=== PATIENT | male | born 1985 | race American Indian/Alaskan Native ===

== ENCOUNTER 2021-05-30 08:02 | Emergency (ER) | payer SELFPAY ==
[2021-05-30] MEDS ORDERED: SODIUM CHLORIDE 0.9% 1000 ML 1,000 ML IV ONE (08:21)
[2021-05-30] MEDS ORDERED: PANTOPRAZOLE 40 MG INJ IV ONE (08:22)
[2021-05-30] MEDS ORDERED: BACLOFEN 10 MG TAB PO ONE (08:23)
--- NOTE | 2021-05-30 08:28 | Emergency Department Report ---
HPI - General Chief Complaint: Abdominal Pain Time Seen by Provider: 05/30/21 08:11 - HPI HPI: 36-year-old -[place] male presents to the emergency department with a 3- day history of intractable hiccups and epigastric abdominal pain. The hiccups s tarted 1st, followed by the abdominal pain. He says that this is 5 out of 10 in intensity and is a soreness. It worsens with the hiccups, but no known alleviating factors. He has tried multiple physical maneuvers and/or home remedies for the hiccups without any relief. This is never happened to him previously. He denies any past medical history. No recent travel or sick contacts at home. He denies any fever, back pain, dysuria, chest pain, shortness of breath, nausea, vomiting, diarrhea, constipation. ED Past Medical Hx - Social History Smoking Status: Never Smoker Substance Use Type: Alcohol - Medications Home Medications: Home Medications Medication Instructions Recorded Confirmed Last Taken Type chlorproMAZINE [Thorazine] 25 mg PO Q8H PRN #9 tablet 05/30/21 Unknown Rx ED Review of Systems ROS: Stated complaint: HICCUPS Other details as noted in HPI Comment: All other systems reviewed and negative Constitutional: denies: chills, fever Eyes: denies: eye pain, vision change ENT: denies: ear pain, throat pain Respiratory: denies: cough, shortness of breath Cardiovascular: denies: chest pain, palpitations Gastrointestinal: abdominal pain. denies: vomiting Genitourinary: denies: dysuria, discharge Musculoskeletal: denies: back pain, arthralgia Skin: denies: rash, lesions Neurological: denies: headache, weakness Physical Exam - Physical Exam Vital Signs: Vital Signs 05/30/21 08:06 Temperature 99.3 F Pulse Rate 88 Respiratory 15 Rate Blood Pressure 130/93 [Right] O2 Sat by Pulse 95 Oximetry Physical Exam: GENERAL: The patient is well-developed well-nourished. Persistent hiccups seen. HENT: Normocephalic. Atraumatic. Patient has moist mucous membranes. EYES: Extraocular motions are intact. NECK: Supple. Trachea is midline. CHEST/LUNGS: Clear to auscultation. There is no respiratory distress noted. HEART/CARDIOVASCULAR: Regular. There is no tachycardia. There is no murmur. ABDOMEN: Abdomen is soft. There is some epigastric tenderness to palpation. No guarding. Patient has normal bowel sounds. There is no abdominal distention. SKIN: Skin is warm and dry. NEURO: The patient is awake, alert, and oriented. The patient is cooperative. The patient has no focal neurologic deficits. Normal speech. MUSCULOSKELETAL: There is no tenderness or deformity. There is no limitation range of motion. ED Course Vital Signs 05/30/21 08:06 Temperature 99.3 F Pulse Rate 88 Respiratory 15 Rate Blood Pressure 130/93 [Right] O2 Sat by Pulse 95 Oximetry ED Medical Decision Making - Lab Data Result diagrams: 05/30/21 09:53 05/30/21 09:53 Lab Results 05/30/21 05/30/21 05/30/21 Range/Units 09:53 09:53 09:53 WBC 17.2 H (4.5-11.0) K/mm3 RBC 4.77 (3.65-5.03) M/mm3 Hgb 14.8 (11.8-15.2) gm/dl Hct 45.3 (35.5-45.6) % MCV 95 H (84-94) fl MCH 31 (28-32) pg MCHC 33 (32-34) % RDW 11.7 L (13.2-15.2) % Plt Count 367 (140-440) K/mm3 Lymph % (Auto) 12.9 L (13.4-35.0) % [place] % (Auto) 9.9 H (0.0-7.3) % Eos % (Auto) 0.2 (0.0-4.3) % Baso % (Auto) 0.3 (0.0-1.8) % Lymph # (Auto) 2.2 (1.2-5.4) K/mm3 [place] # (Auto) 1.7 H (0.0-0.8) K/mm3 Eos # (Auto) 0.0 (0.0-0.4) K/mm3 Baso # (Auto) 0.0 (0.0-0.1) K/mm3 Seg Neutrophils % 76.7 H (40.0-70.0) % Seg Neutrophils # 13.2 H (1.8-7.7) K/mm3 Sodium 136 L (137-145) mmol/L Potassium 3.2 L (3.6-5.0) mmol/L Chloride 93.5 L (98-107) mmol/L Carbon Dioxide 27 (22-30) mmol/L Anion Gap 19 mmol/L BUN 20 (9-20) mg/dL Creatinine 1.1 (0.8-1.3) mg/dL Estimated GFR > 60 ml/min BUN/Creatinine Ratio 18 % Glucose 119 H (75-100) mg/dL Calcium 8.7 (8.4-10.2) mg/dL Total Bilirubin 1.40 H (0.1-1.2) mg/dL Direct Bilirubin 0.3 H (0-0.2) mg/dL Indirect Bilirubin 1.1 mg/dL AST 29 (5-40) units/L ALT 37 (7-56) units/L Alkaline Phosphatase 65 (35-129) units/L Total Protein 7.7 (6.3-8.2) g/dL Albumin 4.1 (3.9-5) g/dL Albumin/Globulin Ratio 1.1 % Lipase 19 (13-60) units/L TSH 0.451 (0.270-4.200) mlU/mL Urine Color (Yellow) Urine Turbidity (Clear) Urine pH (5.0-7.0) Ur Specific [place] (1.003-1.030) Urine Protein (Negative) mg/dL Urine Glucose (UA) (Negative) mg/dL Urine Ketones (Negative) mg/dL Urine Blood (Negative) Urine Nitrite (Negative) Urine Bilirubin (Negative) Urine Urobilinogen (<2.0) mg/dL Ur Leukocyte Esterase (Negative) Urine WBC (Auto) (0.0-6.0) /HPF Urine RBC (Auto) (0.0-6.0) /HPF Urine Mucus /HPF 05/30/21 Range/Units 12:19 WBC (4.5-11.0) K/mm3 RBC (3.65-5.03) M/mm3 Hgb (11.8-15.2) gm/dl Hct (35.5-45.6) % MCV (84-94) fl MCH (28-32) pg MCHC (32-34) % RDW (13.2-15.2) % Plt Count (140-440) K/mm3 Lymph % (Auto) (13.4-35.0) % [place] % (Auto) (0.0-7.3) % Eos % (Auto) (0.0-4.3) % Baso % (Auto) (0.0-1.8) % Lymph # (Auto) (1.2-5.4) K/mm3 [place] # (Auto) (0.0-0.8) K/mm3 Eos # (Auto) (0.0-0.4) K/mm3 Baso # (Auto) (0.0-0.1) K/mm3 Seg Neutrophils % (40.0-70.0) % Seg Neutrophils # (1.8-7.7) K/mm3 Sodium (137-145) mmol/L Potassium (3.6-5.0) mmol/L Chloride (98-107) mmol/L Carbon Dioxide (22-30) mmol/L Anion Gap mmol/L BUN (9-20) mg/dL Creatinine (0.8-1.3) mg/dL Estimated GFR ml/min BUN/Creatinine Ratio % Glucose (75-100) mg/dL Calcium (8.4-10.2) mg/dL Total Bilirubin (0.1-1.2) mg/dL Direct Bilirubin (0-0.2) mg/dL Indirect Bilirubin mg/dL AST (5-40) units/L ALT (7-56) units/L Alkaline Phosphatase (35-129) units/L Total Protein (6.3-8.2) g/dL Albumin (3.9-5) g/dL Albumin/Globulin Ratio % Lipase (13-60) units/L TSH (0.270-4.200) mlU/mL Urine Color Yellow (Yellow) Urine Turbidity Clear (Clear) Urine pH 6.0 (5.0-7.0) Ur Specific [place] 1.012 (1.003-1.030) Urine Protein <15 mg/dl (Negative) mg/dL Urine Glucose (UA) Neg (Negative) mg/dL Urine Ketones Neg (Negative) mg/dL Urine Blood Sm (Negative) Urine Nitrite Neg (Negative) Urine Bilirubin Neg (Negative) Urine Urobilinogen < 2.0 (<2.0) mg/dL Ur Leukocyte Esterase Neg (Negative) Urine WBC (Auto) 1.0 (0.0-6.0) /HPF Urine RBC (Auto) < 1.0 (0.0-6.0) /HPF Urine Mucus Few /HPF - Radiology Data Radiology results: report reviewed, image reviewed interpreted by me: Chest x-ray does not show any acute process. There are no pleural effusions, obvious pneumonia and there is no pneumothorax. No widened mediastinum. Abdominal x-ray shows nonspecific nonobstructive bowel gas. CT abdomen pelvis w con INDICATION: Abd pain 100 ML OMNI 300 . COMPARISON: None TECHNIQUE: Abdominal and pelvic CT exam performed. All CT scans at this location are performed using CT dose reduction for ALARA by means of automated exposure control. FINDINGS: CT ABDOMEN and PELVIS: Lung Bases: No significant abnormality. Liver: No significant abnormality. Biliary: No significant abnormality. Spleen: No significant abnormality. Pancreas: No significant abnormality. Adrenals: No significant abnormality. Kidneys: No significant abnormality. Lymphatics: No lymphadenopathy. Vasculature: No significant abnormality. Bowel: No significant abnormality. Normal appendix. Pelvis: No significant abnormality. Osseous Structures: No aggressive osseous lesion. Additional Findings: None IMPRESSION: 1. No significant abnormality of the abdomen or pelvis. - Medical Decision Making This patient presents to the emergency department with a 3-day history of epigastric abdominal pain and intractable hiccups. On examination there is some reproducible epigastric tenderness to palpation but the abdomen is soft, nondistended and nontoxic in appearance. The patient does have persistent hiccups. Heart and lung sounds are normal to auscultation the patient does not appear in any respiratory or acute distress. Vital signs have been reassuring throughout his ED course including being afebrile. Patient's labs shows a leukocytosis of 17,000, mild hypokalemia with a potassium level of 3.2, and slightly elevated bilirubin level. No other electrolyte abnormalities and normal thyroid function. Abdominal x-ray shows nonspecific nonobstructive bowel gas. No free air. Chest x-ray shows no evidence of pneumonia, pneumothorax, widened mediastinum, pleural effusions, or any other acute process. CT of the abdomen pelvis with IV contrast does not show any abdominal or pelvic pathology or etiology of the patient's discomfort or intractable hiccups. Patient was given IV fluid resuscitation, a PPI and baclofen, and then was given a dose of Reglan. Upon reevaluation the hiccups have greatly slowed down but have not yet completely resolved. Patient appears safe for discharge home at this time. He has been given a small prescription for Thorazine for the hiccups and he has been given outpatient referrals for primary care. Critical Care Time: No Critical care attestation.: If time is entered above; I have spent that time in minutes in the direct care of this critically ill patient, excluding procedure time. ED Disposition Clinical Impression: Hiccups, Abdominal pain, Hypokalemia Disposition: 01 HOME / SELF CARE / HOMELESS Is pt being admited?: No Condition: Stable Instructions: Abdominal Pain, Adult, Hiccups, Hypokalemia Additional Instructions: Please follow-up with a primary care physician in the next few days. I have given you a referral for a local primary care physician, Dr. Deluca, and a [facility], [facility]. I am giving you a referral for [facility] to follow-up regarding your abdominal pain. Return to the emergency department with any worsening of your symptoms, new or concerning symptoms not addressed during this current emergency department visit, or with any acute distress. Prescriptions: chlorproMAZINE [Thorazine] 25 mg PO Q8H PRN #9 tablet PRN Reason: Hiccups Referrals: PRIMARY CAREMD [Primary Care Provider] - 3-5 Days ERI DELUCA MD [Staff Physician] - 3-5 Days [facility] [Provider Group] - 3-5 Days [facility] [Provider Group] - 3-5 Days Forms: Work/School Release Form(ED) Time of Disposition: 13:10
--- NOTE | 2021-05-30 09:13 | XRay Report ---
Abdominal series with 1 view chest x-ray. INDICATION / CLINICAL INFORMATION: Pain.. COMPARISON: None available. FINDINGS: No acute findings within the chest. Cardiac silhouette is within normal limits. TUBES / LINES: None. BOWEL GAS PATTERN: No gas-distended loops of intestines in the abdomen, although the lack of bowel ga s does limit evaluation. FREE AIR / EXTRALUMINAL GAS: None seen. ADDITIONAL FINDINGS: No significant additional findings. IMPRESSION: No acute findings within the chest or abdomen. Signer Name: Breezy Flowers MD Signed: 05/30/2021 9:09 AM Workstation Name: [id number]
[2021-05-30 10:15] LABS: Basophils % (Auto) 0.3 % (0.0-1.8); Eosinophils % (Auto) 0.2 % (0.0-4.3); Hematocrit 45.3 % (35.5-45.6); Hemoglobin 14.8 gm/dl (11.8-15.2); Lymphocytes # (Auto) 2.2 K/mm3 (1.2-5.4); Lymphocytes % (Auto) 12.9 % (13.4-35.0); Mean Corpuscular HGB Conc 33 % (32-34); Mean Corpuscular Volume 95 fl (84-94); Monocytes # (Auto) 1.7 K/mm3 (0.0-0.8); Monocytes % (Auto) 9.9 % (0.0-7.3); Platelet Count 367 K/mm3 (140-440); Red Blood Count 4.77 M/mm3 (3.65-5.03); Red Cell Distribution Width 11.7 % (13.2-15.2)
[2021-05-30] MEDS ORDERED: METOCLOPRAMIDE 10 MG/2 ML INJ IV ONE (10:19)
[2021-05-30 10:46] LABS: Alanine Aminotransferase 37 units/L (7-56); Albumin 4.1 g/dL (3.9-5); BUN/Creatinine Ratio 18; Bilirubin,Direct 0.3 mg/dL (0-0.2); Blood Urea Nitrogen 20 mg/dL (9-20); Calcium 8.7 mg/dL (8.4-10.2); Hemolysis Index 10
[2021-05-30] MEDS ORDERED: POTASSIUM CHLORIDE ER 10 MEQ TAB PO NR (11:30)
--- NOTE | 2021-05-30 11:59 | Cat Scan Report ---
CT abdomen pelvis w con INDICATION: Abd pain 100 ML OMNI 300 . COMPARISON: None TECHNIQUE: Abdominal and pelvic CT exam performed. All CT scans at this location are performed using CT dose reduction for ALARA by means of automated exposure control. FINDINGS: CT ABDOMEN and PELVIS: Lung Bases: No significant abnormality. Liver: No significant abnormality. Biliary: No significant abnormality. Spleen: No significant abnormality. Pancreas: No significant abnormality. Adrenals: No significant abnormality. Kidneys: No significant abnormality. Lymphatics: No lymphadenopathy. Vasculature: No significant abnormality. Bowel: No significant abnormality. Normal appendix. Pelvis: No significant abnormality. Osseous Structures: No aggressive osseous lesion. Additional Findings: None IMPRESSION: 1. No significant abnormality of the abdomen or pelvis. Signer Name: Tomás Vera MD Signed: 05/30/2021 11:55 AM Workstation Name: [id number]
[2021-05-30 12:54] LABS: Bilirubin,Urine NEG (Negative); Blood,Urine SM (Negative); Color,Urine Yellow (Yellow); Mucus,Urine FEW /HPF; Protein,Urine <15 mg/dL mg/dL (Negative); Urobilinogen,Urine < 2.0 mg/dL (<2.0)
[2021-05-30 13:07] LABS: RBC,Urine < 1.0 /HPF (0.0-6.0)
[2021-05-30 14:39] VITALS: BP 130/82
== END 2021-05-30 14:36 | disposition home or self-care (01) ==
LOC: ED 08:02
DX: R06.6 Hiccough (principal); R10.13 Epigastric pain; E87.6 Hypokalemia
CPT/HCPCS: 36415; 74022; 74177; 80048; 80076; 81001; 83690; 84443; 85025; 96361; 96374; 96375; 99284; C9113; J2765; J7030; Q9967; Q0162